=== PATIENT | male | born 1985 | race African-American/Black ===

== ENCOUNTER 2019-06-26 11:22 | Emergency (ER) | payer SELFPAY ==
[2019-06-26] MEDS ORDERED: BUPIVACAINE HCL 0.5 % INJ/PF 30 ML SDV INJ ONE (12:00)
[2019-06-26] MEDS ORDERED: DIPH/PERTUSS(ACELL)/TETANUS VAC/PF 0.5 ML SYR (>=10YO) IM ONE (12:01)
[2019-06-26] MEDS ORDERED: LIDOCAINE 1% INJ (10 MG/ML) 10 ML MDV ONE (12:24)
--- NOTE | 2019-06-26 12:29 | ER Document Report ---
HPI - HPI Time Seen by Provider: 06/26/19 11:56 Pain Level: 2 Context: Patient is a 34-year-old male who presents the emergency department with a chief complaint of a laceration to his right third finger distal to the MIP joint. Patient was holding a piece of glass and it broke and he ended up cutting his finger. He is able to flex and extend his finger with no difficulty. Patient is right-handed. Denies DM or blood thinner use. - ROS Systems Reviewed and Negative: Yes All other systems reviewed and negative - CONSTITUTIONAL Constitutional: DENIES: Fever - NEURO Neurology: DENIES: Headache - MUSCULOSKELETAL Musculoskeletal: REPORTS: Extremity pain. DENIES: Swelling - DERM Skin Color: Normal Skin Problems: Laceration - right anterior 3rd digit Past Medical History - General Information source: Patient - Social History Smoking Status: Current Every Day Smoker Chew tobacco use (# tins/day): No Frequency of alcohol use: Occasional Drug Abuse: Marijuana Family History: Reviewed & Not Pertinent Patient has suicidal ideation: No Patient has homicidal ideation: No Renal/ Medical History: Reports: Hx Epididymitis GI Medical History: Reports: Hx Ulcer Psychiatric Medical History: Reports: Hx Depression - Immunizations Immunizations up to date: Yes Hx Diphtheria, Pertussis, Tetanus Vaccination: No Hx Pneumococcal Vaccination: 07/14/05 Vertical Provider Document - CONSTITUTIONAL Agree With Documented VS: Yes Exam Limitations: No Limitations General Appearance: No Apparent Distress - INFECTION CONTROL TRAVEL OUTSIDE OF THE [place] IN LAST 30 DAYS: No - HEENT HEENT: Atraumatic, Normocephalic, PERRLA - RESPIRATORY Respiratory: No Respiratory Distress - CARDIOVASCULAR Cardiovascular: Regular Rate Pulses: Normal: Radial - NEURO Level of Consciousness: Awake, Alert, Appropriate Motor/Sensory: No Motor Deficit, No Sensory Deficit - DERM Integumentary: Warm, Dry, No Rash, Laceration - Right anterior 3rd digit between MIP and DIP joint Course - Re-evaluation Re-evalutation: 06/26/19 13:24 Differential diagnosis includes but is not limited to: Laceration, foreign body, arterial injury, nerve injury, fracture or tendon injury. Patient was able to flex and extend her digits against resistance distal to the laceration with no apparent tendon injury, CMS intact distal to the injury with no evidence of nerve damage, bleeding was well-controlled in the emergency department. X-ray was obtained to rule out foreign body, this was negative. Wound was repaired. See procedure note. - Vital Signs Vital signs: Temp Pulse Resp BP Pulse Ox 99 F 82 16 142/74 H 97 06/26/19 11:56 06/26/19 11:56 06/26/19 11:56 06/26/19 11:56 06/26/19 11:56 Procedures - Laceration/Wound Repair Right Anterior 3rd digit Wound length (cm): 3 Wound's Depth, Shape: Superficial, Irregular, Flap Laceration pre-procedure: Sterile PPE donned, Sterile drapes applied, Shur-Clens applied Anesthetic type: 0.5% Bupivacaine Wound explored: Clean, No foreign body removed Wound Repaired With: Sutures Suture Size/Type: 5:0, Nylon Layer Closure?: No Number Deep Layer Sutures: 6 Post-procedure wound care: Sterile dressing applied, Splint applied - finger Post-procedure NV exam normal: Yes Complications: No Hands front picture: 1 - Irregular flap laceration Discharge - Discharge Clinical Impression: Finger laceration Qualifiers: Encounter type: initial encounter Finger: middle finger Damage to nail status: without damage Foreign body presence: without foreign body Laterality: right Qualified Code(s): S61.212A - Laceration without foreign body of right middle finger without damage to nail, initial encounter Condition: Stable Disposition: HOME, SELF-CARE Instructions: Antibiotic Ointment Protection ([facility]), Laceration Care ([facility]), Pr ophylactic Antibiotic ([facility]), Soap Cleansing ([facility]), Tetanus Immunization Given ([facility]) Additional Instructions: Please return to your primary doctor, the ED, or an urgent care in 7-10 days for suture removal. Return immediately if you develop spreading redness around the wound, pus from the wound, worsening pain, or a fever of >100.4. Keep the area clean and dry. Wash gently with soap and water twice daily and cover with antibiotic ointment. Take all your antibiotics as prescribed. You are being placed in a finger splint to help protect your finger. Prescriptions: Cephalexin Monohydrate [Keflex 500 mg Capsule] 500 mg PO Q6H 5 Days #20 capsule Forms: Return to Work Referrals: [facility] [Provider Group] - Follow up as needed [facility] [Provider Group] - Follow up as needed
--- NOTE | 2019-06-26 12:38 | RADIOLOGY REPORT (SQ) ---
EXAM DESCRIPTION: FINGER RIGHT COMPLETED DATE/TIME: 06/26/2019 12:19 pm REASON FOR STUDY: cut; eval foreign body/glass COMPARISON: None. NUMBER OF VIEWS: Three views right hand and long finger LIMITATIONS: None. FINDINGS: Soft tissue swelling in the region of interest without radiopaque foreign body. Bones int act. OTHER: No other significant finding. IMPRESSION: No foreign body or fracture. TECHNICAL DOCUMENTATION: JOB ID: [id number] Reading location - IP/workstation name: [email or web address]
[2019-06-26] MEDS ORDERED: LIDOCAINE 1% INJ (10 MG/ML) 10 ML MDV INJ ONE (13:27)
[2019-06-26 13:53] VITALS: BP 138/76
== END 2019-06-26 13:56 | disposition home or self-care (01) ==
LOC: ER 11:22
DX: S61.212A Laceration without foreign body of right middle finger without damage to nail, initial encounter (principal); W25.XXXA Contact with sharp glass, initial encounter; Y99.0 Civilian activity done for income or pay; F17.200 Nicotine dependence, unspecified, uncomplicated; F12.10 Cannabis abuse, uncomplicated
CPT/HCPCS: 99283; 90471; 73140; 90715; 12002; J3490

== ENCOUNTER 2020-02-06 16:58 | Emergency (ER) | payer BC ==
[2020-02-06] MEDS ORDERED: IBUPROFEN 600 MG TABLET PO ONE (18:16)
--- NOTE | 2020-02-06 18:24 | ER Document Report ---
ED Hand/Wrist Injury - General Chief Complaint: Hand Pain Stated Complaint: RIGHT HAND/WRIST PAIN,SWELLING Time Seen by Provider: 02/06/20 18:12 Primary Care Provider: BOOKER FELIX JR, DO [ACTIVE PROVISIONAL STAFF] - Follow up tomorrow Mode of Arrival: Ambulatory Notes: 34-year-old male presented to ED for pain and swelling to his right hand. He states he hit something last night while he was drinking he does not know for sure what he hit but the pain is much worse this morning. He states he does have a laceration to the right hand in the area where he hit it. He is alert oriented respirations regular nonlabored speaking in full sentences. His right hand is swollen and painful to touch. He states it is a level 3 out of 5. We will get x-ray treat with ibuprofen and then treat according to what the x-ray results show. TRAVEL OUTSIDE OF THE [place] IN LAST 30 DAYS: No - HPI Injury to: Hand - Right Onset: Yesterday Where: Home, Indoors Timing: Worse Quality of pain: Achy, Sharp, Throbbing Severity: Moderate Pain Level: 3 Context: Blow - It is on something last night, Laceration - Very minimal, Swelling - Related Data Allergies/Adverse Reactions: No Known Allergies Allergy (Verified 02/06/20 18:09) Past Medical History - General Information source: Patient - Social History Smoking Status: Current Every Day Smoker Cigarette use (# per day): Yes - Half a pack a day Smoking Education Provided: Yes Frequency of alcohol use: Heavy - A pint every other day of some type of local Drug Abuse: Marijuana Family History: Reviewed & Not Pertinent Patient has suicidal ideation: No Patient has homicidal ideation: No Renal/ Medical History: Reports: Hx Epididymitis GI Medical History: Reports: Hx Ulcer Psychiatric Medical History: Reports: Hx Depression - Immunizations Immunizations up to date: Yes Hx Diphtheria, Pertussis, Tetanus Vaccination: No Hx Pneumococcal Vaccination: 07/14/05 Review of Systems - Review of Systems Constitutional: No symptoms reported EENT: No symptoms reported Cardiovascular: No symptoms reported Respiratory: No symptoms reported Gastrointestinal: No symptoms reported Genitourinary: No symptoms reported Male Genitourinary: No symptoms reported Musculoskeletal: Other - Right hand pain and swelling Skin: Other - Minimal laceration Hematologic/Lymphatic: No symptoms reported Neurological/Psychological: No symptoms reported Physical Exam - Vital signs Vitals: Temp Pulse Resp BP Pulse Ox 99.0 F 86 16 123/81 97 02/06/20 17:03 02/06/20 17:03 02/06/20 17:03 02/06/20 17:03 02/06/20 17:03 Interpretation: Normal - General General appearance: Appears well, Alert - HEENT Head: Normocephalic, Atraumatic Eyes: Normal Pupils: PERRL - Respiratory Respiratory status: No respiratory distress Chest status: Nontender Breath sounds: Normal Chest palpation: Normal - Cardiovascular Rhythm: Regular Heart sounds: Normal auscultation Murmur: No - Abdominal Inspection: Normal Distension: No distension Bowel sounds: Normal Tenderness: Nontender Organomegaly: No organomegaly - Back Back: Normal, Nontender - Extremities General upper extremity: Normal color, Normal temperature General lower extremity: Normal inspection, Nontender, Normal color, Normal ROM, Normal temperature, Normal weight bearing. No: Radha's sign Hand: Tender, Ecchymosis, Laceration, No evidence of FB, Swelling - Neurological Neuro grossly intact: Yes Cognition: Normal Orientation: AAOx4 [place] Coma Scale Eye Opening: Spontaneous [place] Coma Scale Verbal: Oriented [place] Coma Scale Motor: Obeys Commands Vera Coma Scale Total: 15 Speech: Normal Motor strength normal: LUE, RUE, LLE, RLE Sensory: Normal - Psychological Associated symptoms: Normal affect, Normal mood - Skin Skin Temperature: Warm Skin Moisture: Dry Skin Color: Normal Course - Re-evaluation Re-evalutation: 02/06/20 19:43 Patient had a boxer's fracture into the fifth metacarpal. Results of the x-ray were discussed with patient. A written report of the x-ray was given to patient . Patient has been put in a boxer splint. He has been instructed to follow-up with orthopedics tomorrow by phone to schedule follow-up appointment. Patient has verbalized understanding and agreement with treatment plan. Patient has been given instructions on elevation ice ibuprofen and follow-up. - Vital Signs Vital signs: Temp Pulse Resp BP Pulse Ox 99.0 F 86 16 123/81 97 02/06/20 17:03 02/06/20 17:03 02/06/20 17:03 02/06/20 17:03 02/06/20 17:03 - Diagnostic Test Radiology reviewed: Image reviewed, Reports reviewed Procedures - Immobilization Right Hand Time completed: 19:42 Immobilizer type: Other Performed by: PCT - Boxer splint Post-Proc Neuro Vasc Exam: Normal Alignment checked and good: Yes Discharge - Discharge Clinical Impression: Right seymour's fracture Condition: Stable Disposition: HOME, SELF-CARE Additional Instructions: Fractured Fifth Metacarpal (Boxer's) You have a fracture of the fifth metacarpal bone in the hand, often called a Boxer's Fracture. The fracture is usually caused by striking the knuckle against a hard surface -- such as hitting a wall with the fist. This fracture heals well. Some degree of angle in the fracture is perfectly acceptable, resulting in only a slightly rounder knuckle. Your physician has determined whether your fracture could benefit from "setting", and has outlined a treatment plan for you. The usual treatment is splinting for four to six weeks -- a cast is not usually necessary. At first, the injury should be elevated and ice packed. Contact the doctor at once if swelling or pain becomes severe, or if numbness develops. Acetaminophen Acetaminophen may be taken for pain relief or fever control. It's much safer than aspirin, offering a wider range of "safe" dosages. It is safe during . Some brand names are Tylenol, Panadol, Datril, Anacin 3, Tempra, and Liquiprin. Acetaminophen can be repeated every four hours. The following are maximum recommended dosages: WEIGHT Dose Drops Elixir Chewable(80mg) (LBS.) drprs=droppers tsp=teaspoon 6 40 mg .4 ml (1/2) 6-11 80 mg .8 ml (full) 1/2 tsp 1 tab 12-16 120 mg 1 1/2 drprs 3/4 tsp 1 1/2 tabs 17-23 160 mg 2 drprs 1 tsp 2 tabs 24-30 240 mg 3 drprs 1 1/2 tsp 3 tabs 30-35 320 mg 2 tsp 4 tabs 36-41 360 mg 2 1/4 tsp 4 1/2 tabs 42-47 400 mg 2 1/2 tsp 5 tabs 48-53 480 mg 3 tsp 6 tabs 54-59 520 mg 3 1/4 tsp 6 1/2 tabs 60-64 560 mg 3 1/2 tsp 7 tabs 65-70 600 mg 3 3/4 tsp 7 1/2 tabs 71-76 640 mg 4 tsp 8 tabs 77-82 720 mg 4 1/2 tsp 9 tabs 83-88 800 mg 5 tsp 10 tabs >89 pounds or adults 650 mg to 900 mg Acetaminophen can be repeated every four hours. Maximum daily dose not to exceed 4000 mg. These maximum recommended dosages are slightly higher than the dosages written on the product container, but these dosages are very safe and well below the toxic dosage for acetaminophen. Ibuprofen Ibuprofen is an excellent, safe drug for pain control. In addition, it has potent antiinflammatory effects which are beneficial, especially in the treatment of injuries, arthritis, or tendonitis. It's best to take ibuprofen with food. Persons with ulcer disease or allergy to aspirin should notify their physician of this before taking ibuprofen. Take the medication exactly as prescribed. Don't take additional doses unless instructed to do so by your doctor. If you develop wheezing, shortness of breath, hives, faintness, stomach pain, vomiting, or dark black stools, return for re-evaluation at once. Ice & Elevation Apply ice packs frequently against the painful area. Many different sched ules are recommended, such as "20 minutes on, 20 minutes off" or "one hour ice, two hours rest." If you need to work, you may need to go longer between ice treatments. You should plan to have the area ice packed AT LEAST one-fourth of the time. The ice should be applied over the wrap, tape, or splint, or over a layer of cloth -- not directly against the skin. Some ice bags have a built-in cloth and can be put directly on the skin. Your injured part should be elevated as much as possible over the next 48 hours. Try to keep the injury above the level of the heart. Avoid use of the injured area. Elevation and rest will decrease the swelling. Splint Pending Casting Your injury can't be casted until the swelling has subsided. Therefore, a temporary splint has been placed to protect the injury. Full use of an injured area is not possible in a splint. You should follow the doctor's instructions concerning rest, ice, and elevation of the injury. Never do anything which causes pain under the splint. Keep the splint on ALL THE TIME until you return for casting. If there is unexpected severe pain, or numbness, discoloration, or swelling beyond the splint, you should return at once. FOLLOW-UP CARE: If you have been referred to a physician for follow-up care, call the physicians office for an appointment as you were instructed or within the next two days. If you experience worsening or a significant change in your symptoms, notify the physician immediately or return to the Emergency Department at any time for re-evaluation. Forms: Smoking Cessation Education Referrals: BOOKER FELIX JR, [ACTIVE PROVISIONAL STAFF] - Follow up tomorrow
--- NOTE | 2020-02-06 18:58 | RADIOLOGY REPORT (SQ) ---
EXAM DESCRIPTION: HAND RIGHT 3 VIEWS IMAGES COMPLETED DATE/TIME: 02/06/2020 5:27 pm REASON FOR STUDY: [place] injury swelling. Hit a table. 5th metacarpal pain. COMPARISON: None. EXAM PARAMETERS: NUMBER OF VIEWS: Three views. TECHNIQUE: AP, lateral and oblique radiographic images acquired of the right hand. LIMITATIONS: None. FINDINGS: MINERALIZATION: Normal. BONES: Acute oblique fracture through the midshaft 5th digit metacarpal. Mild volar angulation. No significant displacement. No involvement of the intra-articular surface. JOINTS: No effusions. SOFT TISSUES: Soft tissue swelling overlying the 5th metacarpal. OTHER: No other significant finding. IMPRESSION: Acute mildly angulated fracture of the 5th metacarpal. TECHNICAL DOCUMENTATION: JOB ID: [id number] 2010 [employer]- All Rights Reserved Reading location - IP/workstation name: [email or web address]
[2020-02-06 19:49] VITALS: BP 124/78
[2020-02-06] MEDS ORDERED: OXYCODONE-ACETAMINOPHEN 5-325 MG TABLET PO ONE (19:51)
== END 2020-02-06 19:54 | disposition home or self-care (01) ==
LOC: ER 16:58
DX: S62.356A Nondisplaced fracture of shaft of fifth metacarpal bone, right hand, initial encounter for closed fracture (principal); W22.09XA Striking against other stationary object, initial encounter; Y92.009 Unspecified place in unspecified non-institutional (private) residence as the place of occurrence of the external cause; F17.210 Nicotine dependence, cigarettes, uncomplicated
CPT/HCPCS: 99283